=== PATIENT | female | born 2000 | race Caucasian/White ===

== ENCOUNTER 2018-03-13 17:57 | Emergency (ER) | payer MEDICAID, OTHER ==
[~2018-03-13] VITALS: Ht 157.5 cm; Wt 66.2 kg
[~2018-03-13 17:57] MED LIST: PREN-385 PO
[2018-03-13 18:14] VITALS: BP 108/71
--- NOTE | 2018-03-13 18:53 | NUR ---
UPDATED PT WITH BED AVAILABILITY
--- NOTE | 2018-03-13 19:22 | NUR ---
PT BROUGHT TO BED 12 W STEADY GAIT
--- NOTE | 2018-03-13 19:25 | NUR ---
PT PRESENTS TO ED WITH C/O LOWER ABDOMINAL PAIN AND NAUSEA X 4 DAYS. PT DENIES V/D. ABDOMEN IS SOFT, NON TENDER UPON PALPATION. BOWEL SOUNDS PRESENT X 4 QUADRANTS. LMP: 03/07/18. BOWEL PATTERN REGULAR LAST BM; YESTERDAY AND REGULAR. PT IN BED AND PENDING MD MONAHAN.
[2018-03-13 20:57] VITALS: BP 123/82
--- NOTE | 2018-03-13 21:45 | NUR ---
PATIENT LEFT WITHOUT BEING SEEN BY DR. LANCE. NO FURTHER CARE PROVIDED FOR PATIENT.
== END 2018-03-13 21:45 | disposition left against medical advice (07) ==
LOC: MED 17:57
DX: R10.30 Lower abdominal pain, unspecified (principal); Z53.21 Procedure and treatment not carried out due to patient leaving prior to being seen by health care provider

== ENCOUNTER 2023-10-30 15:40 | Emergency (ER) | payer OTHER ==
[~2023-10-30] VITALS: Ht 154.9 cm; Wt 64.4 kg
[2023-10-30 16:19] VITALS: BP 114/82; PULSE 84; RESP 19; TEMP 98.6; O2SAT 100
[2023-10-30 19:15] LABS: APPEARANCE,URINE CLEAR (CLEAR); BILIRUBIN,URINE NEGATIVE (NEGATIVE); BLOOD, URINE 3+ (NEGATIVE); COLOR,URINE YELLOW (YELLOW); LEUKOCYTE ESTERASE ,URINE NEGATIVE (NEGATIVE); NITRITE, URINE NEGATIVE (NEGATIVE); PROTEIN,URINE NEGATIVE (NEGATIVE); UGLUCOSE NEGATIVE (NEGATIVE); UROBILINOGEN,URINE 0.2 EU/dL (0.2 - 1)
[2023-10-30 19:32] LABS: BACTERIA,URINE 10-30 (MOD) /HPF (None Seen); SQUAMOUS EPITHELIAL CELL,UR 4-10 (MOD) /LPF (0-3 (FEW))
== END 2023-10-30 18:30 | disposition left against medical advice (07) ==
LOC: MED 15:40
DX: R10.30 Lower abdominal pain, unspecified (principal); R51.9 Headache, unspecified; R53.1 Weakness; Z53.21 Procedure and treatment not carried out due to patient leaving prior to being seen by health care provider
CPT/HCPCS: 81001; 81025; 87086